=== PATIENT | female | born 1975 | race Caucasian/White ===

== ENCOUNTER 2024-07-10 09:40 | Day surgery (SDC) | payer BC ==
[2024-07-10] MEDS: Lactated Ringers 1,000 ML IV SCH (11:00)
[2024-07-10] MEDS ORDERED: Propofol 200 MG/20 ML SDV ONE ×4 (12:06→12:16)
[2024-07-10] MEDS ORDERED: EPINEPHrine 1 MG/ML SDV ONE (12:27)
[2024-07-10] MEDS ORDERED: Lactated Ringers 1,000 ML ONE (12:35)
[2024-07-11] MEDS: Bupivacaine 0.5% 30 ML SDV ONE (10:23)
== END 2024-07-10 14:05 | disposition home or self-care (01) ==
LOC: JD.SDS 09:40
PROVIDERS: ATTEND Surgery
DX: K29.70 Gastritis, unspecified, without bleeding (principal); K64.4 Residual hemorrhoidal skin tags; K31.7 Polyp of stomach and duodenum; K21.9 Gastro-esophageal reflux disease without esophagitis; K44.9 Diaphragmatic hernia without obstruction or gangrene; E03.9 Hypothyroidism, unspecified; Z79.890 Hormone replacement therapy; Z79.899 Other long term (current) drug therapy; Z88.2 Allergy status to sulfonamides; Z88.1 Allergy status to other antibiotic agents
CPT/HCPCS: 43239; 45398; J0171; J0665; J2704; J7120; 00731

== ENCOUNTER 2024-08-07 12:54 | Observation (INO) | payer BC ==
[~2024-08-07 12:54] MED LIST: Dexamethasone 4 MG/ML 5 ML MDV ONE; Ketorolac 30 MG/ML SDV ONE; Lidocaine 2% 5 ML SDV ONE; Midazolam 1 MG/ML 2 ML SDV ONE; Ondansetron 4 MG/2 ML SDV ONE; Propofol 200 MG/20 ML SDV ONE; Rocuronium 50 MG/5 ML Vial ONE; Sodium Chloride 0.9% 10 ML Syringe FLUSH PRN; ceFAZolin 2 GM Vial ONE; fentaNYL 100 MCG/2 ML SDV ONE
[2024-08-07] MEDS: Lactated Ringers 1,000 ML IV SCH ×2 (13:15→19:16)
[2024-08-07] MEDS ORDERED: ceFAZolin 2 GM Vial ONE (14:26)
[2024-08-07] MEDS ORDERED: Lactated Ringers 1,000 ML ONE (14:31)
[2024-08-07] MEDS ORDERED: Sugammadex Sodium 200 MG/2 ML VIAL IV ONE (15:27)
[2024-08-07] MEDS ORDERED: Rocuronium 50 MG/5 ML Vial ONE (15:27)
[2024-08-07] MEDS ORDERED: Ondansetron 4 MG/2 ML SDV ONE (15:29)
[2024-08-07] MEDS: Bupivacaine 0.5% 30 ML SDV ONE (15:46)
[2024-08-07] MEDS: EPINEPHrine 1 MG/ML SDV ONE (15:46)
[2024-08-07] MEDS ORDERED: Ondansetron 4 MG/2 ML SDV IVPUSH PRN (15:57)
[2024-08-07] MEDS ORDERED: HYDROmorphone 0.5 MG/0.5 ML Syringe IVPUSH PRN (15:57)
[2024-08-07] MEDS ORDERED: Promethazine 25 MG Tab PO PRN (17:13)
[2024-08-07] MEDS ORDERED: Acetaminophen 325 MG Tab PO PRN (17:13)
[2024-08-07] MEDS ORDERED: Ondansetron 4 MG Tab.DIS PO PRN (17:13)
[2024-08-07] MEDS ORDERED: Benzocaine/Cetylpyridinium/Menthol Lozenge MUCMEM PRN (17:17)
[2024-08-07] MEDS ORDERED: diphenhydrAMINE 50 MG/ML SDV IVPUSH PRN (17:17)
[2024-08-07] MEDS: fentaNYL 100 MCG/2 ML SDV IVPUSH PRN (17:35)
[2024-08-07] MEDS: oxyCODONE 5 MG Tab PO PRN (18:45)
[2024-08-07] MEDS: Simethicone 80 MG Tab.Chew PO PRN (19:10)
[2024-08-07] MEDS: Sodium Chloride 0.9% 10 ML Syringe FLUSH SCH (20:35)
[2024-08-07] MEDS: HYDROmorphone 0.5 MG/0.5 ML Syringe IVPUSH PRN (21:12)
[2024-08-07] MEDS: Metoprolol Succinate 25 MG Tab.ER PO SCH (21:12)
[2024-08-08 04:39] LABS: BASOPHILS PERCENT AUTO 0.3 % (0.0-1.0); EOSINOPHILS PERCENT AUTO 0.1 % (0.0-6.0); HEMATOCRIT 36.7 % (37.0-47.0); HEMOGLOBIN 12.6 gm/dl (12.0-16.0); IMMATURE GRAN ABSOLUTE AUTO 0.07 K/mm3 (0.00-0.05); IMMATURE GRAN PERCENT AUTO 0.5 % (0.0-0.4); LYMPHOCYTES ABSOLUTE AUTO 1.8 K/mm3 (1.0-4.8); LYMPHOCYTES PERCENT AUTO 12.9 % (24.0-44.0); MEAN CORPUSCULAR HEMOGLOBIN 32.1 pg (28.0-32.0); MEAN CORPUSCULAR HGB CONC 34.3 g/dl (32.0-36.0); MEAN CORPUSCULAR VOLUME 93.4 fl (83.0-99.0); MEAN PLATELET VOLUME 10.1 fl (9.4-12.3); MONOCYTES PERCENT AUTO 6.9 % (0.0-8.0); NEUTROPHILS ABSOLUTE AUTO 11.1 K/mm3 (1.8-7.7); NEUTROPHILS PERCENT AUTO 79.3 % (41.0-71.0); PLATELET COUNT,PLT 252 K/mm3 (150-400); RED BLOOD CELL COUNT 3.93 M/mm3 (4.10-5.30); WHITE BLOOD CELL COUNT,WBC 13.99 K/mm3 (3.9-11.3)
[2024-08-08 05:20] LABS: BUN/CREATININE RATIO 11.4 (14-18); CALCIUM 8.8 mg/dL (8.5-10.1); CREATININE 0.7 mg/dL (0.55-1.02); EST CRCL DRUG DOSING (CG) 79.54 mL/min
[2024-08-08] MEDS: Levothyroxine 88 MCG Tab PO SCH (05:51)
[2024-08-08] MEDS: Ketorolac 30 MG/ML SDV IVPUSH SCH (09:09)
[2024-08-09] MEDS ORDERED: Levothyroxine 100 MCG Tab PO SCH (06:00)
== END 2024-08-08 12:21 | disposition home or self-care (01) ==
LOC: JD.MS 12:54 → INTOOBSV 12:54
PROVIDERS: ADMIT Surgery; ATTEND Surgery
DX: K21.9 Gastro-esophageal reflux disease without esophagitis (principal); K64.9 Unspecified hemorrhoids; E03.9 Hypothyroidism, unspecified; Z79.890 Hormone replacement therapy; Z79.899 Other long term (current) drug therapy; Z88.2 Allergy status to sulfonamides; Z88.1 Allergy status to other antibiotic agents
CPT/HCPCS: 36415; 43280; 80048; 85025; 94760; A9270; J0171; J0665; J0690; J1100; J1171; J1885; J2250; J2405; J2704; J3010; J3490; J7120; 00790

== ENCOUNTER 2024-10-30 06:31 | Day surgery (SDC) | payer BC ==
[2024-10-30] MEDS ORDERED: Lactated Ringers 1,000 ML IV ONE (07:00)
[2024-10-30] MEDS ORDERED: Propofol 200 MG/20 ML SDV ONE ×2 (07:14→07:19)
== END 2024-10-30 08:40 | disposition home or self-care (01) ==
LOC: JD.SDS 06:31
PROVIDERS: ATTEND Surgery
DX: R14.0 Abdominal distension (gaseous) (principal); R68.81 Early satiety; E11.9 Type 2 diabetes mellitus without complications; E03.9 Hypothyroidism, unspecified; Z88.8 Allergy status to other drugs, medicaments and biological substances; Z79.899 Other long term (current) drug therapy; Z98.890 Other specified postprocedural states; Z79.890 Hormone replacement therapy
CPT/HCPCS: 43235; J2704; J7120